=== PATIENT | female | born 1945 | race Caucasian/White ===

== ENCOUNTER 2017-04-19 10:30 | Emergency (ER) | payer OTHER ==
[~2017-04-19] VITALS: Ht 157.5 cm; Wt 35.0 kg
[~2017-04-19 10:30] MED LIST: ALBUTEROL SULF8.5 GM IH; ALBUTEROL2.5 MG/3 M IH; B COMPLEX WITH1 EACH PO; BENICAR20 MG PO; CATAPRES0.1 MG PO; CATAPRES0.2 MG PO; CIPRO500 MG PO; CLARITIN10 M3 PO; COMPAZINE5 MG PO; COSOPT 0.5200 DROP/1 OP; CRESTOR40 MG PO; DEPAKOTE500 MG PO; DRONABINOL2.5 MG PO; DULERA 200 MCG/13 GM IH; ENABLEX15 MG PO; ESTRACE42.5 GM VG; FENTANYL1 EAC1 TD; FLAGYL500 MG PO; FLONASE16 G1 BOTH NARES; FLONASE16 G1 NS; FLUOROMETHOLONE 0.1% OP; FLUOROMETHOLONE15 ML BOTH EYES; HUMALOG100 UNIT/1 SC; KEPPRA1000 MG PO; KEPPRA250 M1 PO; KEPPRA250 M2 PO; KEPPRA750 MG PO; KLOR-CON M2020 MEQ PO; LANTUS 10100 UNITS/ SC; LATANOPROST2.5 ML BOTH EYES; LEVAQUIN500 MG PO; LEVAQUIN750 MG PO; LEVEMIR FL100 UNITS/ SC; LEVETIRACETAM750 MG PO; LEVOFLOXACIN750 MG PO; LIORESAL10 MG PO; LISINOPRIL5 MG PO; LOPERAMIDE2 M1 PO; MARINOL5 MG PO; METRONIDAZOLE500 MG PO; MONTELUKAST SOD10 MG PO; MORPHINE SULFAT15 MG PO; NORCO 10/3251 TABLET PO; NOVOLOG 10100 UNITS/ SQ; PREDNISOLONE5 MG PO; PREDNISONE10 MG PO; PRENATAL + DHA1 EACH PO; PRILOSEC20 MG PO; PRILOSEC40 MG PO; PROAIR HFA8.5 GM IH; SPIRIVA1 INHALATI IH; SYNTHROID25 MCG PO; TRAVATAN Z5 ML BOTH EYES; TRIAMCINOLONE A15 GM TP; TROSPIUM CHLORI60 MG PO; VIMPAT150 MG PO
[2017-04-19 12:43] LABS: POINT-OF-CARE METER ID UU13113702
[2017-04-19 13:19] LABS: ADD MIUA? YES; BILIRUBIN NEGATIVE; BLOOD MODERATE; COLOR YELLOW ((YELLOW)); GLUCOSE (STRIP) 50; KETONES 5; LEUKOCYTES LARGE; NITRITE NEGATIVE; PROTEIN (STRIP) 100; SPECIFIC GRAVITY 1.016 (1.000-1.030); UROBILINOGEN 0.2 MG/DL (0.2-1.0)
[2017-04-19 13:27] LABS: BACTERIA 3+ /HPF; EPITHELIAL CELLS RARE /HPF; MUCUS TRACE /LPF; RED BLOOD CELLS 20-30 /HPF (0-5); UCUL ADDED? YES; WHITE BLOOD CELLS TNTC /HPF (0-5)
[2017-04-19 14:58] VITALS: BP 166/71
[2017-04-19] MEDS ORDERED: UNABLE TO PROVIDE (14:59)
== END 2017-04-19 15:00 | disposition hospice, home (50) ==
LOC: EME 10:30
PROVIDERS: Emergency Medicine
PROC: 0T2BX0Z Change Drainage Device in Bladder, External Approach (ICD-10-PCS; principal; 2017-04-19)
DX: N30.90 Cystitis, unspecified without hematuria (principal); S31.109A Unspecified open wound of abdominal wall, unspecified quadrant without penetration into peritoneal cavity, initial encounter; L08.9 Local infection of the skin and subcutaneous tissue, unspecified; S51.811A Laceration without foreign body of right forearm, initial encounter; S41.111A Laceration without foreign body of right upper arm, initial encounter; S81.812A Laceration without foreign body, left lower leg, initial encounter; S81.811A Laceration without foreign body, right lower leg, initial encounter; W06.XXXA Fall from bed, initial encounter; Y92.009 Unspecified place in unspecified non-institutional (private) residence as the place of occurrence of the external cause; J44.9 Chronic obstructive pulmonary disease, unspecified; I10 Essential (primary) hypertension; E11.9 Type 2 diabetes mellitus without complications; Z79.4 Long term (current) use of insulin; R56.9 Unspecified convulsions; Z93.3 Colostomy status; F17.200 Nicotine dependence, unspecified, uncomplicated
CPT/HCPCS: 81003; 82948; 87077; 87086; 99281; 99284